=== PATIENT | female | born 1990 | race Caucasian/White ===

== ENCOUNTER 2022-12-10 15:41 | Inpatient (IN) | payer OTHER ==
[2022-12-10 18:01] VITALS: BMI 26.5
[2022-12-10] MEDS ORDERED: BISMUTH SUBSALICYLATE 524 MG/30 ML PO PRN (18:29)
[2022-12-10] MEDS ORDERED: DICYCLOMINE HCL 10 MG CAPSULE PO PRN (18:29)
[2022-12-10] MEDS ORDERED: ONDANSETRON *ODT* 4 MG TABLET SL PRN (18:29)
[2022-12-10] MEDS ORDERED: POLYETHYLENE GLYCOL (HEALTHYLAX) 3350 17 GM PACKET PO PRN (18:29)
[2022-12-10] MEDS ORDERED: LOPERAMIDE HCL 2 MG CAPSULE PO PRN (18:29)
[2022-12-10] MEDS ORDERED: BENZOCAINE/MENTHOL (CHLORASEPTIC ) LOZENGE MM PRN (18:29)
[2022-12-10] MEDS ORDERED: MAG HYDROX/AL HYDROX/SIMETH 30 ML UNIT-DOSE CUP PO PRN (18:29)
[2022-12-10] MEDS ORDERED: IBUPROFEN 400 MG TABLET (FP) PO PRN (18:29)
[2022-12-10] MEDS ORDERED: MAGNESIUM HYDROX 2400MG/30ML ORAL SUSPENSION 30 ML CUP PO PRN (18:29)
[2022-12-10] MEDS ORDERED: NICOTINE POLACRILEX 2 MG GUM BUC PRN (18:29)
[2022-12-10] MEDS ORDERED: NALOXONE HCL (KLOXXADO) 8 MG SPRAY NS PRN (18:29)
[2022-12-10] MEDS ORDERED: ACETAMINOPHEN 325 MG TABLET (FP) PO PRN (18:29)
[2022-12-10] MEDS ORDERED: IBUPROFEN 600 MG TABLET (FP) PO PRN (18:29)
[2022-12-10] MEDS: MELATONIN 5 MG TABLETS PO SCH (22:04)
[2022-12-10] MEDS: THIAMINE HCL 100 MG TABLET (FP) PO SCH (22:05)
[2022-12-10] MEDS: METHOCARBAMOL 500 MG TABLET PO PRN (23:06)
[2022-12-10] MEDS: diazePAM 5 MG TABLET PO SCH (23:06)
[2022-12-11] MEDS: ACETAMINOPHEN 325 MG TABLET (FP) PO PRN ×2 (01:03→14:51)
[2022-12-11] MEDS: diazePAM 5 MG TABLET PO SCH ×4 (06:21→22:16)
[2022-12-11] MEDS: METHOCARBAMOL 500 MG TABLET PO PRN ×2 (10:32→18:02)
[2022-12-11] MEDS: PRENATAL VITAMINS W/ FOLIC ACID TABLET (FP) PO SCH (10:32)
[2022-12-11 11:29] LABS: HEMATOCRIT 39.4 % (32.4-45.2); HEMOGLOBIN 12.9 GM/dL (10.7-15.3); MCHC 32.8 g/dl (32.0-36.0); MEAN CELL VOLUME 85.3 fl (80-96); MEAN PLT VOLUME 8.6 fl (7.5-11.1); PLATELET COUNT 319 10^3/uL (134-434); RBC 4.62 M/mm3 (3.60-5.2); RDW 14.4 % (11.6-15.6); WHITE BLOOD COUNT 7.9 K/mm3 (4.0-10.0)
[2022-12-11 12:03] LABS: ALBUMIN 3.5 g/dl (3.4-5.0); BLOOD UREA NITROGEN 8.2 mg/dL (7-18); CALCIUM 8.9 mg/dL (8.5-10.1)
[2022-12-11 12:06] LABS: BILIRUBIN,TOTAL 0.8 mg/dL (0.2-1); CREATININE 0.8 mg/dL (0.55-1.3)
[2022-12-11 12:08] LABS: TOT PROT 6.6 g/dl (6.4-8.2)
[2022-12-11] MEDS: NICOTINE 10 MG CARTRIDGE (INHALER) IH PRN (14:51)
[2022-12-11] MEDS: MELATONIN 5 MG TABLETS PO SCH (22:16)
[2022-12-11] MEDS: THIAMINE HCL 100 MG TABLET (FP) PO SCH (22:16)
[2022-12-12] MEDS: diazePAM 5 MG TABLET PO SCH ×3 (05:17→22:14)
[2022-12-12] MEDS: NICOTINE 10 MG CARTRIDGE (INHALER) IH PRN (09:41)
[2022-12-12] MEDS: PRENATAL VITAMINS W/ FOLIC ACID TABLET (FP) PO SCH (10:14)
[2022-12-12] MEDS: diazePAM 5 MG TABLET PO PRN ×2 (10:14→17:41)
[2022-12-12] MEDS: hydrOXYzine PAMOATE 25 MG CAPSULE (FP) PO PRN ×2 (14:08→22:15)
[2022-12-12] MEDS: THIAMINE HCL 100 MG TABLET (FP) PO SCH (22:13)
[2022-12-12] MEDS: MELATONIN 5 MG TABLETS PO SCH (22:13)
[2022-12-13] MEDS: hydrOXYzine PAMOATE 25 MG CAPSULE (FP) PO PRN (05:26)
[2022-12-13] MEDS: METHOCARBAMOL 500 MG TABLET PO PRN (05:26)
[2022-12-13] MEDS ORDERED: diazePAM 5 MG TABLET PO SCH (06:00)
[2022-12-13 09:51] VITALS: BP 147/81; PULSE 79; RESP 18; TEMP 97.9
[2022-12-13] MEDS: PRENATAL VITAMINS W/ FOLIC ACID TABLET (FP) PO SCH (11:12)
[2022-12-14] MEDS ORDERED: diazePAM 5 MG TABLET PO ONE (06:00)
== END 2022-12-13 09:41 | disposition home or self-care (01) | DRG 773 ==
LOC: YASAS 15:41 → Y6N 18:52
PROVIDERS: ADMIT Allergy & Immunology; ATTEND Surgery
PROC: HZ2ZZZZ Detoxification Services for Substance Abuse Treatment (ICD-10-PCS; principal; 2022-12-10)
DX: F13.230 Sedative, hypnotic or anxiolytic dependence with withdrawal, uncomplicated (principal); F11.20 Opioid dependence, uncomplicated; F14.20 Cocaine dependence, uncomplicated; F17.210 Nicotine dependence, cigarettes, uncomplicated
CPT/HCPCS: 36415; 80053; 85027; 86780; C9803-CS; U0003; U0005